=== PATIENT | female | born 1990 | race African-American/Black ===

== ENCOUNTER 2022-05-22 10:26 | Emergency (ER) | payer OTHER, MEDICAID, SELFPAY ==
--- NOTE | 2022-05-22 10:29 | ED.EXTPRO ---
HPI - Extremity Problem General Chief complaint: Unspecified Stated complaint: Lt Underarm Pain Time Seen by Provider: 05/22/22 10:29 Source: patient Mode of arrival: ambulatory Limitations: no limitations History of Present Illness HPI Narrative: Ms. Sorto is a 31-year-old female patient presenting to the clinic today with complaints of right underarm pain x 3 days. She reports she started taking clindamycin yesterday and she felt as though the area got worse. She denies any fever or chills. Related Data Home Medications Medication Instructions Recorded Confirmed pantoprazole 40 mg tablet,delayed 40 mg PO QAM 05/22/22 05/22/22 release Allergies Allergy/AdvReac Type Severity Reaction Status Date / Time No Known Allergies Allergy Verified 05/22/22 10:38 Review of Systems Review of Systems: Pertinent positives per HPI. Patient denies any fever, chills, rash, headache, visual changes, dizziness, cough, runny nose, sore throat, shortness of breath, chest pain, palpitations, nausea, vomiting, diarrhea, constipation, abdominal pain, or any urinary issues. PMFSH Comments At the time of my signature, I reviewed and agree with the nursing past medical, surgical, social, and family history. There is no relevant family history pertinent to the patient complaint. Exam Narrative: General: Well-developed, well nourished, in no apparent distress Head: Normocephalic, atraumatic. Cardio: Regular rate and rhythm, s1 and s2 normal, no murmur appreciated. Resp: Clear to auscultation bilaterally, no rhonchi, rales, wheezing or rubs. Integumentary: Sunray, warm, and dry, 5 cm x 5 cm indurated abscess to the right axilla with mild redness, no erythema, fluctuant and tender to palpation Course Course Emergency Course: Portions of this record may have been created with voice recognition software. Level of Care: Express Care Visit Vital Signs Vital signs: Vital signs reviewed Procedures Abscess I/D axilla: Date of Incision: 05/22/22 Time of Incision: 11:00 Side (if applicable): right Local Anesthetic: lidocaine 1% and with epi Amount of anesthesia used (mL): 4 Technique: incised with #11 blade and probed loculations Amount of fluid expressed (mL): 10 Irrigation: No Packing used?: none I&D Results: Pus and Blood Abcess I&D Additional Comments: Verbal consent obtained for incision and drainage. Risk and benefits explained and patient voiced understanding. Area was cleansed with technic care and normal saline. Area was prepped and draped using sterile technique. 25 gauge needle was then used to instill (4) ml of lidocaine with epi into the abscess edges. Patient tolerated well and anesthesia was appropriate. An 11 blade scalpel was then used to make a 0.5cm incision over the abscess. White/green bloody exudate expressed from cavity. Wound culture obtained and sent to lab. Patient tolerated procedure well. Sterile dressing applied MDM - Extremity (Nontraumatic) MDM Narrative Medical decision making narrative: At the time of visit patient is resting comfortably on the exam table. Incision and drainage was performed in the clinic and a culture was obtained. Prescription for doxycycline sent to the pharmacy. Supportive measures were discussed with the patient she voiced understanding of discharge instructions and agrees to treatment plan. Differential Diagnosis Differential diagnosis: Likely other (Subcutaneous abscess, skin infection, cellulitis) Discharge Plan Discharge Clinical Impression: Abscess of axilla, right Patient Disposition: Home, Self-Care Condition: Stable Instructions: Antibiotic Form, Abscess (ED), Abscess Incision and Drainage (DC) Additional Instructions: Incision and drainage performed in the clinic today and culture was obtained. Wash the area daily with soap and water-you may shower May take Tylenol/Motrin as needed f
[2022-05-22 10:39] VITALS: BP 123/91; PULSE 79; RESP 18; TEMP 36.3; O2SAT 100
[2022-05-22 10:46] VITALS: BP 123/91; PULSE 79; RESP 18; TEMP 36.3; O2SAT 100
== END 2022-05-22 11:20 | disposition home or self-care (01) ==
PROVIDERS: Emergency Provider Nurse Practitioner Family
DX: L02.412 Cutaneous abscess of left axilla (principal)
CPT/HCPCS: 10060; 87070; 87075; 87147; 87181; 87186; 87205; 99203; G0463

== ENCOUNTER 2022-12-01 10:08 | Emergency (ER) | payer OTHER, MEDICAID, SELFPAY ==
[2022-12-01 10:26] VITALS: BP 114/69; PULSE 79; RESP 18; TEMP 36.3; O2SAT 100
--- NOTE | 2022-12-01 10:35 | ED.URI ---
HPI - URI/Sore Throat General Chief Complaint: Upper Respiratory Infection Stated Complaint: sorethroat,congestion Time Seen by Provider: 12/01/22 10:35 Source: patient Mode of arrival: ambulatory Limitations: no limitations History of Present Illness HPI Narrative: 32 yo F presents with c/o sinus congestion, L sided facial pressure, L ear feels clogged, muffled hearing . Reports intermittent allergy symptoms for several weeks. Getting progressively worse. Now has cough and drainge. scratchy throat. afebrile. No CP or SOB. Not taking any OTC allergy meds. All systems reviewed and negative except as noted above. Related Data Home Medications Medication Instructions Recorded Confirmed pantoprazole 40 mg tablet,delayed 40 mg PO QAM 05/22/22 12/01/22 release Allergies Allergy/AdvReac Type Severity Reaction Status Date / Time No Known Allergies Allergy Verified 12/01/22 10:30 Review of Systems Review of Systems: CONSTITUTIONAL: Denies fever, chills, or sweats. EYES: Denies visual changes, redness, or discharge. ENT: reports rhinorrhea, congestion, sinus pressure, scratchy throat, left ear clogged. CARDIOVASCULAR: Denies chest pain, palpitations, or edema. RESPIRATORY: Denies cough or dyspnea. GASTROINTESTINAL: Denies abdominal pain, nausea, vomiting, or diarrhea. GENITOURINARY: Denies dysuria or hematuria. SKIN: Denies rash or itching. MUSCULOSKELETAL: Denies back pain, joint pain, or myalgia. NEUROLOGIC: Denies headache, numbness, or weakness. PSYCHIATRIC: Denies anxiety or depression. All other systems reviewed are negative, except as documented in HPI. PMFSH Comments At time of signature, agree with nursing past medical, surgical, social and family history. There is no relevant family history pertinent to the presenting complaint. Exam Narrative: GENERAL: This is a well-nourished, well-developed patient, in no apparent distress. HEAD: normocephalic, atraumatic. EYES: PERRL. Sclera clear/white. Vision is grossly intact. EARS: External ears normal, auditory canals clear and without drainage, Fluid to left TM, dull light reflex. Right TM normal. NOSE: External nose normal with Clear nasal drainage, erythema to both nares. Left-sided frontal and maxillary sinus tenderness. THROAT: Mucous membranes moist, Erythema postnasal drainage. NECK: Neck supple, non-tender without lymphadenopathy, masses or thyromegaly. CARDIOVASCULAR: Regular rate and rhythm without murmurs, gallops, or rubs. RESPIRATORY: Clear to auscultation. Breath sounds equal bilaterally. No wheezes, rales, or rhonchi. SKIN: warm, Dry, intact with no suspicious lesions or rash, good texture and turgor. NEURO: awake, alert, and oriented to person, place and time. There were no obvious focal neurologic abnormalities. EXTREMITIES: No joint tenderness, effusion, or edema noted. Course Course Level of Care: Express Care Visit Vital Signs Vital signs: Vital Signs Temperature 36.3 C L 12/01/22 10:26 Pulse Rate 79 12/01/22 10:26 Respiratory Rate 18 12/01/22 10:26 Blood Pressure 114/69 12/01/22 10:26 Pulse Oximetry 100 12/01/22 10:26 Oxygen Delivery Room Air 12/01/22 10:26 Temperature 36.3 C L 12/01/22 10:26 Pulse Rate 79 12/01/22 10:26 Respiratory Rate 18 12/01/22 10:26 Blood Pressure 114/69 12/01/22 10:26 Pulse Oximetry 100 12/01/22 10:26 Oxygen Delivery Room Air 12/01/22 10:26 Reviewed MDM - URI/Sore Throat MDM Narrative Medical decision making narrative: Patient is aware of diagnosis, understands and agrees to treatment plan. Anticipatory guidance given. Patient agrees to follow-up as directed and is aware of reasons to seek care at the emergency department. Portions of this record may have been created with voice recognition software Differential Diagnosis Differential diagnosis: Likely upper respiratory infection and sinusitis Lab Data Labs: Strep Screen P
== END 2022-12-01 11:30 | disposition home or self-care (01) ==
PROVIDERS: Emergency Provider Nurse Practitioner Family
DX: J01.90 Acute sinusitis, unspecified (principal); Z20.822 Contact with and (suspected) exposure to COVID-19
CPT/HCPCS: 87081; 87426; 87880; 99213; C9803; G0463

== ENCOUNTER 2023-02-08 14:24 | Emergency (ER) | payer OTHER, MEDICAID, SELFPAY ==
--- NOTE | 2023-02-08 14:48 | ED.URI ---
HPI - URI/Sore Throat General Chief Complaint: Upper Respiratory Infection Stated Complaint: cold symptoms Time Seen by Provider: 02/08/23 14:48 Source: patient Mode of arrival: ambulatory Limitations: no limitations History of Present Illness HPI Narrative: Patient is a 32-year-old female who presents with 2 days of sore throat, body aches, headache, congestion. Daughter has similar symptoms. Has been taking Tylenol and ibuprofen with moderate relief. Denies any ear pain, cough, nausea, vomiting, diarrhea. Denies any seasonal allergies. Related Data Home Medications Medication Instructions Recorded Confirmed pantoprazole 40 mg tablet,delayed 40 mg PO QAM 05/22/22 02/08/23 release Allergies Allergy/AdvReac Type Severity Reaction Status Date / Time No Known Allergies Allergy Verified 02/08/23 16:26 Review of Systems Review of Systems: All systems reviewed & are unremarkable except as noted in HPI and below Constitutional: Constitutional: Denies body ache(s), Reports chills, Denies fatigue, Denies fever(s), Reports headache(s), Denies malaise and Denies weakness Eyes: Eyes: Denies blurry vision, Denies itchy eyes and Denies loss of vision ENT: Denies otalgia, Reports headache(s), Reports nasal congestion, Denies sinus pain and Reports sore throat Cardiovascular: Cardiovascular: Denies chest pain, Denies irregular heart rhythm and Denies dyspnea Respiratory: Respiratory: Denies cough and Denies dyspnea Gastrointestinal: Gastrointestinal: Denies abdominal pain, Denies diarrhea, Denies nausea and Denies vomiting Musculoskeletal: Musculoskeletal: Denies back pain, Denies myalgias and Denies arthralgias Integumentary/Breasts: Skin/Breast: Denies pruritus and Denies rash Neurologic: Reports headache(s), Denies loss of vision and Denies weakness Psychiatric: Psychiatric: Reports no additional psychiatric complaints Endocrine: Endocrine: Denies fatigue Allergic/Immunologic: Allergic/Immunologic: Denies itchy eyes PMFSH Comments At time of signature, agree with nursing past medical, surgical, social and family history. There is no relevant family history pertinent to the presenting complaint. Exam Const: General: cooperative, healthy appearing, comfortable, no acute distress and well nourished Nutritional Appearance: well nourished Orientation/consciousness: patient oriented x3 Limitations: no limitations HENMT: Head: normal to inspection, normocephalic and atraumatic Ears: hearing grossly normal bilaterally, external ears normal, TM's normal bilaterally, EAC's normal and no periauricular adenopathy Face/Nose/Sinus: Normal external nose present, Abnormal mucous membranes and turbinates present erythematous bilateral and diffuse, normal facial exam, sinuses nontender and face symmetric Face and sinus: normal facial exam, sinuses nontender and face symmetric Mouth: Yes Normal oral and palatal mucosa present, Yes lip normal, Yes tongue normal, Yes Normal salivary glands and ducts present, Yes oropharynx normal and Yes moist mucous membranes Teeth and gingiva: dentition normal Throat: posterior oropharynx normal, tonsils normal and uvula midline Eyes: General: appearance normal, both eyes and all related structures Alignment and Position: alignment normal and position normal Periorbital: periorbital findings normal Eyelids: eyelids normal Pupils: Equal, round and reactive pupils present Neck: Neck: normal visual inspection, full ROM, no lymphadenopathy and supple Chest: Chest palpation & inspection: normal inspection of the chest and normal palpation of entire chest wall Resp: Effort & Inspection: normal respiratory effort and able to speak in complete sentences Auscultation: clear to auscultation bilaterally, no crackles, no rales, no rhonchi and no wheezes Cardio: Rate: regular rate Rhythm: regular rhythm Heart sounds: S1 normal heart sound present and S2 normal heart sound present GI: Inspection:
[2023-02-08 16:10] VITALS: BP 139/97; PULSE 74; RESP 16; TEMP 36.6; O2SAT 100
== END 2023-02-08 16:45 | disposition home or self-care (01) ==
PROVIDERS: Emergency Provider Nurse Practitioner Family; PCP Pediatrics
DX: J06.9 Acute upper respiratory infection, unspecified (principal)
CPT/HCPCS: 87081; 87880; 99213; G0463